=== PATIENT | female | born 1990 | race Caucasian/White ===

== ENCOUNTER 2016-08-12 13:42 | Observation (INO) | payer OTHER ==
[2016-08-12 13:57] VITALS: BMI 22.4
[2016-08-12] MEDS ORDERED: Metoprolol 1 mg/ml Inj IVP ONE (14:03)
[2016-08-12] MEDS ORDERED: Sodium Chloride 0.9% 1,000 ML IV ONE (14:04)
[2016-08-12] MEDS ORDERED: Metoprolol 1 mg/ml Inj IVP STA (14:05)
[2016-08-12 14:16] LABS: BASO % 0.3 % (0.0-2.0); EOS # 0.1 K/uL (0.0-0.7); EOS % 0.9 % (0.0-4.0); LYMPH % 33.8 % (20.0-40.0); MEAN CELL VOLUME 77.9 fL (81.0-99.0); MEAN CORPUSCULAR HEMOGLOBIN 24.8 pg (27.0-31.0); MEAN CORPUSCULAR HGB CONC 31.9 g/dL (33.0-37.0); MEAN PLATELET VOLUME 11.7 fL (7.2-11.7); MONO # 1.1 K/uL (0.0-0.8); MONO % 9.2 % (0.0-10.0); NRBC % 0.1 % (0.0-2.0); RED CELL DISTRIBUTION WIDTH 15.3 % (11.5-14.5); WHITE BLOOD COUNT 11.7 K/uL (4.8-10.8)
[2016-08-12 14:24] LABS: CHLORIDE 104 mmol/L (98-107)
[2016-08-12 14:25] LABS: POTASSIUM 3.6 mmol/L (3.6-5.2); SODIUM 142 mmol/L (132-148)
[2016-08-12 14:27] LABS: ALKALINE PHOSPHATASE 63 U/L (38-126); AST/SGOT 29 U/L (14-36); BILIRUBIN,TOTAL 0.5 mg/dL (0.2-1.3); BLOOD UREA NITROGEN 9 mg/dL (7-17); CARBON DIOXIDE 24 mmol/L (22-30); GFR AFRICAN-AMERICAN > 60; TOTAL PROTEIN 8.6 g/dL (6.3-8.3)
[2016-08-12 14:28] LABS: ALT/SGPT 24 U/L (9-52); CALCIUM 9.2 mg/dl (8.6-10.4); GLUCOSE,RANDOM 104 mg/dL (65-105)
[2016-08-12 14:33] LABS: INR 1.2; PARTIAL THROMBOPLASTIN TIME 32 SECONDS (21-34)
--- NOTE | 2016-08-12 14:59 | C.PDOC ---
History Of Present Illness Patient is a 25 year old female brought in via EMS for palpitations lasting 45 minutes. Patient was tachycardic arrival; she denies any PMHx but states she has a Hx of "tachycardia". Patient also reports taking beta blockers daily. Denies SOB, chest pain or nausea. Time Seen by Provider: 08/12/16 13:51 Chief Complaint (Nursing): Palpitations History Per: Patient History/Exam Limitations: no limitations Onset/Duration Of Symptoms: Mins (45) Current Symptoms Are (Timing): Still Present Associated Symptoms: denies: Chest Pain, Dyspnea, Other (Nausea) Quality Of Symptoms: Rapid Heart Rate Exacerbating Factor(s): Pos: None Recent travel outside of the [place]: No Past Medical History Reviewed: Historical Data, Nursing Documentation, Vital Signs Vital Signs: Last Vital Signs Temp 98.1 F 08/12/16 16:55 Pulse 81 08/12/16 16:55 Resp 20 08/12/16 16:55 BP 95/68 L 08/12/16 16:55 Pulse Ox 100 08/12/16 16:55 - Medical History PMH: No Chronic Diseases Surgical History: No Surg Hx Family History: States: Unknown Family Hx - Social History Hx Alcohol Use: No Hx Substance Use: No - Immunization History Hx Tetanus Toxoid Vaccination: Yes Hx Influenza Vaccination: Yes Hx Pneumococcal Vaccination: (unnk) Review Of Systems Cardiovascular: Positive for: Palpitations. Negative for: Chest Pain Respiratory: Negative for: Shortness of Breath Gastrointestinal: Negative for: Nausea Physical Exam - Physical Exam Appears: Non-toxic, Other (Mild distress) Skin: Normal Color, Warm, Dry Head: Atraumatic, Normacephalic Oral Mucosa: Moist Chest: Symmetrical, No Tenderness Cardiovascular: Rhythm Regular (Tachycardic), No Murmur Respiratory: Normal Breath Sounds, No Rales, No Rhonchi, No Wheezing Gastrointestinal/Abdominal: Soft, No Tenderness Neurological/Psych: Oriented x3, Normal Speech, Normal Cognition ED Course And Treatment - Laboratory Results Result Diagrams: 08/12/16 14:12 08/12/16 14:12 Lab Interpretation: Normal (trop neg. d-dimer neg.) ECG: Interpreted By Tx ECG Rhythm: SVT (190's, then returned to NSR 83 after Adenosine 6 IV.) ECG Interpretation: Abnormal O2 Sat by Pulse Oximetry: 96 Pulse Ox Interpretation: Normal - Radiology CXR: Interpreted by Me CXR Interpretation: Yes: No Acute Disease (no pericardial effusion) Progress Note: EKG ordered. Adenosine, lopressor and IV fluids administered. Reevaluation Time: 14:57 Reassessment Condition: Improved - Physician Consult Information Outcome Of Conversation: 1300: d/w Dr. Luz Pérez- Medicine Student Support Services Director- ok to Tele Obs. 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 no pericardial effusion on CXR, neg d-dimer argues against PE Failed Vagal treatment with face in ice water by 5 attmepts, then Adenosine 6 IV resolved SVT Disposition Doctor Will See Patient In The: Hospital Counseled Patient/Family Regarding: Studies Performed, Diagnosis - Disposition Disposition: HOSPITALIZED Disposition Time: 14:59 Condition: GOOD - Clinical Impression Clinical Impression: SVT (supraventricular tachycardia) - Scribe Statement The provider has reviewed the documentation as recorded by the Scribe Josh Bauman All medical record entries made by the Katharinaibemmett were at my direction and personally dictated by me. I have reviewed the chart and agree that the record accurately reflects my personal performance of the history, physical exam, medical decision making, and the department course for this patient. I have also personally directed, reviewed, and agree with the discharge instructions and disposition.
[2016-08-12 15:11] LABS: RBC URINE 2 /hpf (0-3); URINE BACTERIA OCC (<OCC); URINE BILIRUBIN NEGATIVE (NEGATIVE); URINE BLOOD 1+ (NEGATIVE); URINE COLOR Straw (YELLOW); URINE GLUCOSE (UA) NORMAL (Normal); URINE KETONE NEGATIVE (NEGATIVE); URINE LEUKOCYTE ESTERASE 1+ Leu/uL (Negative); URINE PROTEIN NEGATIVE (NEGATIVE); URINE UROBILINOGEN NORMAL mg/dL (0.2-1.0); WBC URINE 6 /hpf (0-5)
--- NOTE | 2016-08-12 17:04 | RAD ---
PROCEDURE: CHEST RADIOGRAPH, 1 VIEW HISTORY: SOB COMPARISON: None available. FINDINGS: LUNGS: Clear. PLEURA: No pneumothorax or pleural fluid seen. CARDIOVASCULAR: Normal. OSSEOUS STRUCTURES: No significant abnormalities. VISUALIZED UPPER ABDOMEN: Normal. OTHER FINDINGS: None. IMPRESSION: No active disease.
--- NOTE | 2016-08-12 18:09 | CP.PCM.HP ---
Past Patient History - Past Social History Smoking Status: Never Smoked - CARDIAC Other/Comment: Tachycardia - HEMATOLOGICAL/ONCOLOGICAL Other/Comment: Thrombocytopenia - GASTROINTESTINAL Hx Ulcer: Yes - PSYCHIATRIC Hx Substance Use: No - SURGICAL HISTORY Hx Surgeries: No - ANESTHESIA Hx Anesthesia: No Meds Allergies/Adverse Reactions: Allergies Allergy/AdvReac Type Severity Reaction Status Date / Time sulfur Allergy Uncoded 08/12/16 13:58 Results - Vital Signs Recent Vital Signs: Last Vital Signs Temp 98.1 F 08/12/16 16:55 Pulse 78 08/12/16 18:06 Resp 20 08/12/16 16:55 BP 95/68 L 08/12/16 16:55 Pulse Ox 96 08/12/16 17:17 - Labs Result Diagrams: 08/12/16 14:12 08/12/16 14:12
[2016-08-12] MEDS ORDERED: Aluminum Hydroxide/Magnesium Hydroxide Susp (30 mL) PO STA (23:12)
[2016-08-12 23:22] VITALS: RESP 20; O2SAT 98
--- NOTE | 2016-08-12 23:26 | CP.PCM.PN ---
Subjective - Date & Time of Evaluation Date of Evaluation: 08/12/16 Time of Evaluation: 22:00 - Subjective Subjective: Patient complaining of rash that began today. Malar rash. Denies any other symptoms. Stopped INH. Objective - Vital Signs/Intake and Output Vital Signs (last 24 hours): Temp Pulse Resp BP Pulse Ox 97.9 F 78 20 101/63 98 08/12/16 23:19 08/12/16 23:19 08/12/16 23:19 08/12/16 23:19 08/12/16 23:19 Intake and Output: 08/12/16 08/13/16 18:59 06:59 Intake Total 120 Balance 120 - Medications Medications: Current Medications Ethambutol HCl (Myambutol) 800 mg PO DAILY [facility] Pantoprazole Sodium (Protonix Ec Tab) 40 mg PO DAILY [facility] Pyridoxine HCl (Vitamin B6 50 Mg Tab) 50 mg PO DAILY [facility] - Labs Labs: PT 13.3 SECONDS (9.7-12.2) H 08/12/16 14:12 INR 1.2 08/12/16 14:12 APTT 32 SECONDS (21-34) 08/12/16 14:12
--- NOTE | 2016-08-13 06:51 | CP.PCM.CON ---
Past Patient History - Past Medical History & Family History Past Medical History?: Yes - Past Social History Smoking Status: Never Smoked - CARDIAC Other/Comment: Tachycardia - PULMONARY Hx Respiratory Disorders: No - NEUROLOGICAL Hx Neurological Disorder: No - HEENT Hx HEENT Problems: No - RENAL Hx Chronic Kidney Disease: No - ENDOCRINE/METABOLIC Hx Endocrine Disorders: No - HEMATOLOGICAL/ONCOLOGICAL Other/Comment: Thrombocytopenia - INTEGUMENTARY Hx Dermatological Problems: No - MUSCULOSKELETAL/RHEUMATOLOGICAL Hx Musculoskeletal Disorders: No Hx Falls: No - GASTROINTESTINAL Hx Ulcer: Yes - GENITOURINARY/GYNECOLOGICAL Hx Genitourinary Disorders: No - PSYCHIATRIC Hx Substance Use: No - SURGICAL HISTORY Hx Surgeries: No - ANESTHESIA Hx Anesthesia: No Meds Allergies/Adverse Reactions: Allergies Allergy/AdvReac Type Severity Reaction Status Date / Time sulfur Allergy Uncoded 08/12/16 13:58 - Medications Medications: Current Medications Ethambutol HCl (Myambutol) 800 mg PO DAILY [facility] Pantoprazole Sodium (Protonix Ec Tab) 40 mg PO DAILY [facility] Pyridoxine HCl (Vitamin B6 50 Mg Tab) 50 mg PO DAILY [facility] Results - Vital Signs Recent Vital Signs: Last Vital Signs Temp 97.9 F 08/12/16 23:19 Pulse 81 08/13/16 00:37 Resp 20 08/12/16 23:19 BP 101/63 08/12/16 23:19 Pulse Ox 98 08/12/16 23:19 - Labs Result Diagrams: 08/12/16 14:12 08/12/16 14:12
[2016-08-13] MEDS ORDERED: Pantoprazole 40 mg EC Tab PO SCH (10:00)
--- NOTE | 2016-08-13 15:27 | CP.PCM.DIS ---
Provider - Provider Date of Admission: 08/12/16 14:53 Attending physician: Shemar Pérez MD Time Spent in preparation of Discharge (in minutes): 30 (discyssed wt vadourous and also pt father in jose and with pt pete whitney) Hospital Course - Lab Results Lab Results: Most Recent Lab Values WBC 11.7 K/uL (4.8-10.8) H 08/12/16 14:12 RBC 5.13 Mil/uL (3.80-5.20) 08/12/16 14:12 Hgb 12.7 g/dL (11.0-16.0) 08/12/16 14:12 Hct 40.0 % (34.0-47.0) 08/12/16 14:12 MCV 77.9 fL (81.0-99.0) L 08/12/16 14:12 MCH 24.8 pg (27.0-31.0) L 08/12/16 14:12 MCHC 31.9 g/dL (33.0-37.0) L 08/12/16 14:12 RDW 15.3 % (11.5-14.5) H 08/12/16 14:12 Plt Count 173 K/uL (130-400) 08/12/16 14:12 MPV 11.7 fL (7.2-11.7) 08/12/16 14:12 Neut % (Auto) 55.8 % (50.0-75.0) 08/12/16 14:12 Lymph % (Auto) 33.8 % (20.0-40.0) 08/12/16 14:12 [place] % (Auto) 9.2 % (0.0-10.0) 08/12/16 14:12 Eos % (Auto) 0.9 % (0.0-4.0) 08/12/16 14:12 Baso % (Auto) 0.3 % (0.0-2.0) 08/12/16 14:12 Neut # 6.5 K/uL (1.8-7.0) 08/12/16 14:12 Lymph # 4.0 K/uL (1.0-4.3) 08/12/16 14:12 [place] # 1.1 K/uL (0.0-0.8) H 08/12/16 14:12 Eos # 0.1 K/uL (0.0-0.7) 08/12/16 14:12 Baso # 0.0 K/uL (0.0-0.2) 08/12/16 14:12 PT 13.3 SECONDS (9.7-12.2) H 08/12/16 14:12 INR 1.2 08/12/16 14:12 APTT 32 SECONDS (21-34) 08/12/16 14:12 D-Dimer, Quantitative < 200 ng/mlDDU (0-243) 08/12/16 14:12 Sodium 142 mmol/L (132-148) 08/12/16 14:12 Potassium 3.6 mmol/L (3.6-5.2) 08/12/16 14:12 Chloride 104 mmol/L (98-107) 08/12/16 14:12 Carbon Dioxide 24 mmol/L (22-30) 08/12/16 14:12 Anion Gap 18 (10-20) 08/12/16 14:12 BUN 9 mg/dL (7-17) 08/12/16 14:12 Creatinine 0.6 MG/DL (0.7-1.2) L 08/12/16 14:12 Est GFR ( Amer) > 60 08/12/16 14:12 Est GFR (Non-Af Amer) > 60 08/12/16 14:12 Random Glucose 104 mg/dL (65-105) 08/12/16 14:12 Calcium 9.2 mg/dl (8.6-10.4) 08/12/16 14:12 Total Bilirubin 0.5 mg/dL (0.2-1.3) 08/12/16 14:12 AST 29 U/L (14-36) 08/12/16 14:12 ALT 24 U/L (9-52) 08/12/16 14:12 Alkaline Phosphatase 63 U/L (38-126) 08/12/16 14:12 Troponin I < 0.0120 ng/mL (0.00-0.120) 08/12/16 14:12 NT-Pro-B Natriuret Pep 61.6 pg/mL (0-450) 08/12/16 14:12 Total Protein 8.6 g/dL (6.3-8.3) H 08/12/16 14:12 Albumin 4.3 g/dL (3.5-5.0) 08/12/16 14:12 Globulin 4.3 gm/dL (2.2-3.9) H 08/12/16 14:12 Albumin/Globulin Ratio 1.0 (1.0-2.1) 08/12/16 14:12 Urine Color Straw (YELLOW) 08/12/16 14:52 Urine Clarity Clear (Clear) 08/12/16 14:52 Urine pH 8.0 (5.0-8.0) 08/12/16 14:52 Ur Specific [place] 1.006 (1.003-1.030) 08/12/16 14:52 Urine Protein Negative mg/dL (NEGATIVE) 08/12/16 14:52 Urine Glucose (UA) Normal mg/dL (Normal) 08/12/16 14:52 Urine Ketones Negative mg/dL (NEGATIVE) 08/12/16 14:52 Urine Blood 1+ (NEGATIVE) H 08/12/16 14:52 Urine Nitrate Negative (NEGATIVE) 08/12/16 14:52 Urine Bilirubin Negative (NEGATIVE) 08/12/16 14:52 Urine Urobilinogen Normal mg/dL (0.2-1.0) 08/12/16 14:52 Ur Leukocyte Esterase 1+ Yelena/uL (Negative) H 08/12/16 14:52 Urine WBC (Auto) 6 /hpf (0-5) H 08/12/16 14:52 Urine RBC (Auto) 2 /hpf (0-3) 08/12/16 14:52 Ur Squamous Epith Cells 2 /hpf (0-5) 08/12/16 14:52 Urine Bacteria Occ (<OCC) H 08/12/16 14:52 Urine HCG, Qual Negative (NEGATIVE) 08/12/16 14:52 Urine Opiates Screen Negative (NEGATIVE) 08/12/16 14:52 Urine Methadone Screen Negative (NEGATIVE) 08/12/16 14:52 Ur Barbiturates Screen Negative (NEGATIVE) 08/12/16 14:52 Ur Phencyclidine Scrn Negative (NEGATIVE) 08/12/16 14:52 Ur Amphetamines Screen Negative (NEGATIVE) 08/12/16 14:52 U Benzodiazepines Scrn Negative (NEGATIVE) 08/12/16 14:52 U Oth Cocaine Metabols Negative (NEGATIVE) 08/12/16 14:52 U Cannabinoids Screen Negative (NEGATIVE) 08/12/16 14:52 Discharge Exam - Head Exam Head Exam: ATRAUMATIC, NORMAL INSPECTION, NORMOCEPHALIC - Eye Exam Eye Exam: EOMI, Normal appearance, PERRL - Respiratory Exam Respiratory Exam: Clear to PA & Lateral - Cardiovascular Exam Cardiovascular Exam: Tachycardia, RRR - GI/Abdominal Exam GI & Abdominal Exam: Diminished Bowel Sounds - Rectal Exam Rectal Exam: NORMAL INSPECTION - Exam Exam: Circumcision - Extremities Exam Extremities exam: normal capillary refill, normal inspection - Neurological Exam Neurological exam: Oriented x3 - Psychiatric Exam Psychiatric exam: Normal Affect - Skin Skin Exam: Warm Discharge Plan - Follow Up Plan Condition: GOOD Disposition: HOME/ ROUTINE Patient education suggested?: Yes
[2016-08-13 16:06] VITALS: BP 109/72; TEMP 98.8
[2016-08-13 19:56] VITALS: PULSE 82
== END 2016-08-13 20:46 | disposition home or self-care (01) ==
LOC: C.ER 13:42 → C.9E 14:53 → C.5T 16:40
PROVIDERS: ADMIT Internal Medicine Nephrology; ATTEND Internal Medicine Nephrology
DX: I47.1 Supraventricular tachycardia (principal)
CPT/HCPCS: 71010; 80053; 80324; 80345; 80346; 80349; 80353; 80358; 80361; 81001; 83880; 83992; 84484; 84703; 85025; 85378; 85610; 85730; 96361; 96374; 96375; 99285; G0378; J0153; J7040

== ENCOUNTER 2016-08-17 18:03 | Emergency (ER) | payer OTHER ==
[2016-08-17 18:10] VITALS: BMI 24.5
[2016-08-17 18:23] VITALS: TEMP 98.6
[2016-08-17] MEDS ORDERED: Sodium Chloride 0.9% 1,000 ML ONE (19:55)
[2016-08-17] MEDS: Sodium Chloride 0.9% 1,000 ML IV STA (19:58)
--- NOTE | 2016-08-17 20:01 | C.PDOC ---
History Of Present Illness 25 year old female c PMHx SVT on Metoprolol, ITP p/w dizziness, nausea, that began today with her menstrual period. She notes that she was in this ER 1 week prior and admitted for SVT and converted after adenosine. She states that the palpitations she had at that time have not returned. She also notes a history of ITP with a level of 175 when last checked on Sunday. Patient states she began her menstrual cycle today for the first time in three month and has a history of irregular periods and has had them evaluated before. She denies any palpitations, vomiting, or fever. She came to the ER thinking that perhaps her symptoms are related to her period but given her recent episode of SVT, wanted to make sure she was all right. Time Seen by Provider: 08/17/16 19:08 Chief Complaint (Nursing): Dizziness/Lightheaded History Per: Patient History/Exam Limitations: no limitations Onset/Duration Of Symptoms: Hrs Current Symptoms Are (Timing): Still Present Fall Associated With With Symptoms: No Recent travel outside of the [place]: No Past Medical History Reviewed: Historical Data, Nursing Documentation, Vital Signs Vital Signs: Last Vital Signs Temp 98.6 F 08/17/16 18:11 Pulse 65 08/17/16 20:32 Resp 20 08/17/16 20:32 BP 115/77 08/17/16 20:32 Pulse Ox 99 08/17/16 21:11 Family History: States: Unknown Family Hx - Social History Hx Alcohol Use: No Hx Substance Use: No - Immunization History Hx Tetanus Toxoid Vaccination: Yes Hx Influenza Vaccination: Yes Hx Pneumococcal Vaccination: No (unnk) Review Of Systems Except As Marked, All Systems Reviewed And Found Negative. Constitutional: Negative for: Fever Cardiovascular: Negative for: Chest Pain, Palpitations Respiratory: Negative for: Shortness of Breath Physical Exam - Physical Exam Additional Physical Exam Comments: Constitutional: No acute distress. Head: Normocephalic. Atraumatic. Eyes: PERRL. ENT: Dry mucous membranes. Neck: Supple. Cardiovascular: Regular rate. Radial pulse 2+ bilaterally. Chest: No tenderness. Respiratory: Clear to auscultation bilaterally. GI: Soft. Nontender. Nondistended. Back: No CVA tenderness. Musculoskeletal: No tenderness or swelling of extremities. Capillary refill less than two seconds. Skin: No rash. Clammy hands. Good skin turgor. Neurologic: Alert, no focal deficit. ED Course And Treatment - Laboratory Results Result Diagrams: 08/17/16 19:59 08/17/16 19:59 ECG Rhythm: Sinus Rhythm ECG Interpretation: Normal Interpretation Of ECG: Normal intervals. No ST/T changes. O2 Sat by Pulse Oximetry: 99 (room air ) Medical Decision Making Medical Decision Making: Patient in no acute distress. Labs unremarkable. EKG normal. Vital signs normal. Will discharge patient home, f/u PMD, return to ER for palpitations, near syncope, vomiting, dyspnea, or any other problem. Disposition - Disposition Referrals: Jackie Pérez MD [Staff Provider] - Disposition: HOME/ ROUTINE Disposition Time: 21:00 Condition: STABLE Prescriptions: Ibuprofen [Motrin] 1 tab PO Q6 #30 tab Instructions: Dysmenorrhea (ED) - Clinical Impression Clinical Impression: Dizziness, Nausea - Scribe Statement The provider has reviewed the documentation as recorded by the Scribemmett Fernandez All medical record entries made by the Katharinaibemmett were at my direction and personally dictated by me. I have reviewed the chart and agree that the record accurately reflects my personal performance of the history, physical exam, medical decision making, and the department course for this patient. I have also personally directed, reviewed, and agree with the discharge instructions and disposition.
[2016-08-17 20:08] LABS: BASO % 0.1 % (0.0-2.0); EOS % 0.4 % (0.0-4.0); HEMATOCRIT 39.5 % (34.0-47.0); LYMPH # 1.9 K/uL (1.0-4.3); LYMPH % 15.3 % (20.0-40.0); MEAN CELL VOLUME 77.4 fL (81.0-99.0); MEAN CORPUSCULAR HGB CONC 32.3 g/dL (33.0-37.0); MEAN PLATELET VOLUME 12.7 fL (7.2-11.7); MONO # 0.8 K/uL (0.0-0.8); MONO % 6.4 % (0.0-10.0); WHITE BLOOD COUNT 12.2 K/uL (4.8-10.8)
[2016-08-17 20:13] LABS: RBC URINE 24 /hpf (0-3); URINE BACTERIA RARE (<OCC); URINE BILIRUBIN NEGATIVE (NEGATIVE); URINE BLOOD 3+ (NEGATIVE); URINE COLOR Straw (YELLOW); URINE GLUCOSE (UA) NORMAL (Normal); URINE KETONE NEGATIVE (NEGATIVE); URINE LEUKOCYTE ESTERASE 1+ Leu/uL (Negative); URINE PROTEIN NEGATIVE (NEGATIVE); URINE UROBILINOGEN NORMAL mg/dL (0.2-1.0); WBC URINE 6 /hpf (0-5)
[2016-08-17 20:15] LABS: CHLORIDE 105 mmol/L (98-107); SODIUM 140 mmol/L (132-148)
[2016-08-17 20:16] LABS: POTASSIUM 3.9 mmol/L (3.6-5.2)
[2016-08-17 20:18] LABS: ALB/GLOB RATIO 1.1 (1.0-2.1); ALKALINE PHOSPHATASE 71 U/L (38-126); AST/SGOT 21 U/L (14-36); BILIRUBIN,TOTAL 0.5 mg/dL (0.2-1.3); BLOOD UREA NITROGEN 7 mg/dL (7-17); CARBON DIOXIDE 24 mmol/L (22-30); GFR AFRICAN-AMERICAN > 60; TOTAL PROTEIN 8.2 g/dL (6.3-8.3)
[2016-08-17 20:19] LABS: ALT/SGPT 22 U/L (9-52); CALCIUM 9.1 mg/dl (8.6-10.4); GLUCOSE,RANDOM 95 mg/dL (65-105)
[2016-08-17 21:22] VITALS: BP 109/74; PULSE 66; RESP 18; O2SAT 100
--- NOTE | 2016-08-21 12:02 | CARD ---
APPROVED REPORT EKG Measurement Heart [id number] CO [id number] <Conclusion> Normal sinus rhythm Normal ECG
== END 2016-08-17 21:23 | disposition home or self-care (01) ==
LOC: C.ER 18:03
DX: R11.0 Nausea (principal); R42 Dizziness and giddiness
CPT/HCPCS: 80053; 81001; 83690; 84703; 85025; 96361; 96374; 96375; 99285; J1885; J2405; J7040

== ENCOUNTER 2017-09-18 20:49 | Emergency (ER) | payer OTHER ==
[2017-09-18 20:49] VITALS: BMI 24.5
[2017-09-18 20:59] VITALS: BP 146/74; PULSE 100; RESP 18; TEMP 98.4; O2SAT 98
--- NOTE | 2017-09-18 21:12 | C.PDOC ---
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 As per pt, " accidentally hit toe over door". Noted diffuse subungual hematoma. Otherwise, no deformity, denies weakness, sensory or vascular deficits to Right foot. Time Seen by Provider: 09/18/17 21:01 Chief Complaint (Nursing): Lower Extremity Problem/Injury Past Medical History Reviewed: Historical Data, Nursing Documentation, Vital Signs Vital Signs: Last Vital Signs Temp 98.4 F 09/18/17 20:56 Pulse 100 H 09/18/17 20:56 Resp 18 09/18/17 20:56 BP 146/74 09/18/17 20:56 Pulse Ox 98 09/18/17 21:14 - Medical History PMH: No Chronic Diseases Denies: Chronic Kidney Disease Family History: States: Unknown Family Hx - Social History Hx Alcohol Use: No Hx Substance Use: No - Immunization History Hx Tetanus Toxoid Vaccination: Yes Hx Influenza Vaccination: Yes Hx Pneumococcal Vaccination: No (unnk) Review Of Systems Except As Marked, All Systems Reviewed And Found Negative. Constitutional: Negative for: Fever, Chills Musculoskeletal: Positive for: Foot Pain Skin: Positive for: Lesions Neurological: Negative for: Weakness, Numbness Physical Exam - Physical Exam Appears: Well, Non-toxic, No Acute Distress Skin: Normal Color, Warm, Other (Right 1st toe: complete subungual hematoma, no obvious nail avulsion. No palpable deformity.) Head: Normacephalic Extremity: Normal ROM (Right foot), Tenderness (Right 1st toe), Capillary Refill (less than 2sec to Right 1st toe), No Deformity, No Swelling Neurological/Psych: Oriented x3, Normal Speech, Normal Motor, Normal Sensation, Normal Reflexes ED Course And Treatment O2 Sat by Pulse Oximetry: 98 - Other Rad Right foot X-Ray: Interpreted by Me, Viewed By Me Interpretation: (-) acute fx or dislocation Progress Note: On re-eval, pt is afebrile, hemodynamicalys table. Non-toxic. Ambulatory in ED with stable giat. Right foot: exam c/w complete subungual hematoma s/p draining. FAROM, no neurovascular deficits. Imaging review (-) acute fx or dislocation. Rei tape applied to Right 1st-2nd toes. Pt advised on course of ds. ref. to f/u with Podiatry in 2 days for re-eavl. return if any new changes. Disposition Counseled Patient/Family Regarding: Studies Performed, Diagnosis, Need For Followup - Disposition Referrals: Jackie Pérez MD [Primary Care Provider] - [facility] [Outside] Disposition: HOME/ ROUTINE Disposition Time: 21:33 Condition: STABLE Additional Instructions: Avoid prolong walking Keep foot elevated Take pain medication as need Follow up with Podiatry Clinic on Sunday from noon-3PM for re-evaluation and further treatment as need Return if any new changes. Prescriptions: traMADol [Ultram] 50 mg PO TID #10 tab Instructions: Toe Injury, Contusion (DC) Forms: [employer] ([place]), Work Excuse - Clinical Impression Clinical Impression: Toe contusion, Subungual hematoma
--- NOTE | 2017-09-19 07:54 | RAD ---
Date of service: 09/18/2017 PROCEDURE: Right Foot Radiographs. HISTORY: injury COMPARISON: None. FINDINGS: BONES: Normal. No fracture. JOINTS: Normal. SOFT TISSUES: Normal. OTHER FINDINGS: None. IMPRESSION: Normal right foot radiographs.
== END 2017-09-18 21:45 | disposition home or self-care (01) ==
LOC: SUPCPDRO 20:49 → C.ER 20:49
DX: S90.211A Contusion of right great toe with damage to nail, initial encounter (principal); W22.8XXA Striking against or struck by other objects, initial encounter